=== PATIENT | male | born 1975 ===

== ENCOUNTER 2017-09-20 16:53 | Emergency (ER) | payer MEDICAID ==
--- NOTE | 2017-09-20 18:29 | ED PDOC ---
HPI: Back Time Seen by Provider: 09/20/17 17:19 Chief Complaint (Nursing): Trauma Chief Complaint (Provider): Back Pain History Per: Patient History/Exam Limitations: no limitations Onset/Duration Of Symptoms: Days (x2) Current Symptoms Are (Timing): Still Present Additional Complaint(s): Patient reports back pain after slipping and falling in the shower yesterday. States he hit the left mid back on the side of the tub. Contrary to triage note , patient did not lose his balance. Patient denies any dizziness, lightheadedness, chest pain, headache, or shortness of breath prior to fall. Otherwise: (-) head trauma, (-) other injury, (-) paresthesias, (-) weakness, (- ) acute bowel or bladder dysfunction, (-) fever. PMD: Dr. Jose Marie Past Medical History Reviewed: Historical Data, Nursing Documentation, Vital Signs Vital Signs: Last Vital Signs Temp 98.1 F 09/20/17 16:58 Pulse 73 09/20/17 16:58 Resp 16 09/20/17 16:58 BP 135/78 09/20/17 16:58 Pulse Ox 97 09/20/17 16:58 - Medical History PMH: Back Problems, Depression, Diabetes (Type 1), HTN Denies: Hepatitis, HIV, Seizures, Sexually Transmitted Disease - Surgical History Other surgeries: Right eye surgery s/p trauma - Family History Family History: States: Unknown Family Hx - Social History Current smoker - smoking cessation education provided: No Alcohol: None Drugs: Denies - Home Medications Home Medications: Ambulatory Orders Medication Instructions Recorded Cyclobenzaprine [Cyclobenzaprine 10 mg PO Q8 PRN #9 tab 09/19/15 HCl] Ibuprofen 600 mg PO Q6 PRN #20 tablet 09/19/15 Calamine/Pramoxine [Caladryl] 180 ml TP DAILY #1 bottle 02/24/16 Cephalexin [cephalexin] 500 mg PO BID #20 cap 02/24/16 DiphenhydrAMINE [Benadryl] 25 mg PO Q4H #0 cap 02/24/16 Methylprednisolone [Medrol Dose 4 mg PO DAILY #21 mg 02/24/16 Pack (21 tabs)] Meloxicam [Mobic] 15 mg PO DAILY PRN #30 tab 09/20/17 - Allergies Allergies/Adverse Reactions: Allergies Allergy/AdvReac Type Severity Reaction Status Date / Time levofloxacin Allergy RASH Verified 09/20/17 17:03 Review of Systems ROS Statement: Except As Marked, All Systems Reviewed And Found Negative Constitutional: Negative for: Fever Cardiovascular: Negative for: Chest Pain, Light Headedness Respiratory: Negative for: Shortness of Breath Genitourinary Male: Negative for: Incontinence Musculoskeletal: Positive for: Back Pain Neurological: Negative for: Weakness, Numbness, Headache, Dizziness, Other ( paresthesia, head trauma, syncope) Physical Exam - Reviewed Nursing Documentation Reviewed: Yes Vital Signs Reviewed: Yes - Physical Exam Comments: GENERAL APPEARANCE: Patient is awake, alert, oriented x 3, in mild painful distress. SKIN: Warm, dry; (-) cyanosis. EYES: (-) conjunctival pallor. ENMT: Mucous membranes moist. NECK: (-) tenderness, (-) stiffness, (-) lymphadenopathy. CHEST AND RESPIRATORY: (-) rales, (-) rhonchi, (-) wheezes; breath sounds equal bilaterally. HEART AND CARDIOVASCULAR: (-) irregularity; (-) murmur, (-) gallop. ABDOMEN AND GI: Soft; (-) tenderness; (-) palpable mass. BACK: (+) tenderness to the left mid back near ribs; (-) vertebral tenderness, (-) deformity. EXTREMITIES: (-) deformity. Distal pulses good bilaterally. NEURO AND PSYCH: Mental status as above. Intact sensation bilaterally; normal strength in extension of the knees, plantar and dorsiflexion of the toes. DTRs symmetric. - ECG O2 Sat by Pulse Oximetry: 97 (RA) Pulse Ox Interpretation: Normal Medical Decision Making Medical Decision Making: Clinical Impression: Back pain Time: 18:24 Initial Plan: --X-Ray Left Ribs & PA Chest --Toradol 60 mg IM --Reevaluation XR RIBS: no fracture, no pneumothorax, as read by PA X-ray findings d/w patient, all questions answered. Diagnosis of rib contusion also d/w patient. Based on history, exam and diagnostic results plan will be for outpatient follow up. Will d/c patient with meloxicam. Advised to follow up with primary care physician in 1-2 days without fail. Advised to take medication as prescribed. Return to the emergency room at any time for any new or worsening symptoms. Patient states he fully agrees with and understands discharge instructions. States that he agrees with the plan and disposition. Verbalized and repeated discharge instructions and plan. I have given the patient opportunity to ask any additional questions. Scribe Attestation: Documented by Valerie Martinez, acting as a scribe for Savi Rajput PA-C Provider Scribe Attestation: All medical record entries made by the Scribe were at my direction and personally dictated by me. I have reviewed the chart and agree that the record accurately reflects my personal performance of the history, physical exam, medical decision making, and the department course for this patient. I have also personally directed, reviewed, and agree with the discharge instructions and disposition. Disposition - Clinical Impression Clinical Impression: Rib contusion - Patient ED Disposition Is Patient to be Admitted: No Counseled Patient/Family Regarding: Studies Performed, Diagnosis, Need For Followup, Rx Given - Disposition Disposition: Routine/Home Disposition Time: 19:58 Condition: STABLE Additional Instructions: Thank you for letting us take care of you today. You were treated for L rib contusion. The emergency medical care you received today was directed at your acute symptoms. If you were prescribed any medication, please fill it and take as directed. It may take several days for your symptoms to resolve. Return to the Emergency Department if your symptoms worsen, do not improve, or if you have any other problems. Please contact your doctor in 2 days for re-evaluation and follow up. Bring any paperwork you were given at discharge with you along with any medications you are taking to your follow up visit. Our treatment cannot replace ongoing medical care by a primary care provider (PCP) outside of the emergency department. Thank you for allowing the [facility] team to be part of your care today. If you had an X-Ray : A Radiologist will review the ED reading if any change in treatment is needed we will contact you. Prescriptions: Meloxicam [Mobic] 15 mg PO DAILY PRN #30 tab PRN Reason: Pain, Moderate (4-7) Instructions: Contusion (DC), Bruised Rib (DC) Forms: [employer] (Khmer), [facility] ED School/Work Excuse - POA Present On Arrival: Falls Or Trauma
[2017-09-20 20:51] VITALS: BP 130/70; PULSE 81; RESP 18; TEMP 98; O2SAT 99
--- NOTE | 2017-09-21 09:09 | RAD ---
PROCEDURE: Radiographs of the Chest and Left Ribs. HISTORY: trauma COMPARISON: Chest and ribs radiographs dated 01/13/2014. TECHNIQUE: Frontal radiograph of the chest and multiple oblique radiographs of the left ribs were obtained. FINDINGS: LEFT RIBS: Questionable nondisplaced fractures of the lateral 9th and 10th ribs. LUNGS: Clear. PLEURA: No pneumothorax or pleural fluid. CARDIOVASCULAR: Normal sized heart. No pulmonary vascular congestion. OTHER FINDINGS: Stable appearance of patchy calcifications within the left humeral head likely representing enchondroma. IMPRESSION: Questionable nondisplaced fractures of the lateral 9th and 10th left ribs. ER notification submitted electronically.
== END 2017-09-20 20:51 | disposition home or self-care (01) ==
LOC: H.ER 16:53
DX: S20.219A Contusion of unspecified front wall of thorax, initial encounter (principal); W01.0XXA Fall on same level from slipping, tripping and stumbling without subsequent striking against object, initial encounter; Y93.E1 Activity, personal bathing and showering; Z79.4 Long term (current) use of insulin; F32.9 Major depressive disorder, single episode, unspecified; I10 Essential (primary) hypertension
CPT/HCPCS: 71101; 96372; 99283; J1885

== ENCOUNTER 2017-09-22 17:19 | Emergency (ER) | payer MEDICAID ==
[2017-09-22 19:04] VITALS: BP 122/74; PULSE 70; RESP 16; TEMP 98.4; O2SAT 99
--- NOTE | 2017-09-22 20:57 | ED PDOC ---
HPI: General Adult Time Seen by Provider: 09/22/17 19:10 Chief Complaint (Nursing): Rib Injury Chief Complaint (Provider): LEft rib pain - Radiology call back History Per: Patient History/Exam Limitations: no limitations Onset/Duration Of Symptoms: Days Have you had recent travel within the past 21 days to any of the following countries: [place], [place], [place] or [place]?: No Additional Complaint(s): Pt reports left rib pain. Pt was told to come back to ER for re-evaluation and incentive spirometer due to left rib fractures seen on CXR. Pt states NSAID at home is not helping the pain. Past Medical History Reviewed: Historical Data, Nursing Documentation, Vital Signs Vital Signs: Last Vital Signs Temp 98.4 F 09/22/17 19:00 Pulse 70 09/22/17 19:00 Resp 16 09/22/17 19:00 BP 122/74 09/22/17 19:00 Pulse Ox 99 09/22/17 19:00 - Medical History PMH: Back Problems, Depression, Diabetes (Type 1), HTN Denies: Hepatitis, HIV, Seizures, Sexually Transmitted Disease - Family History Family History: States: Unknown Family Hx - Home Medications Home Medications: Ambulatory Orders Medication Instructions Recorded Cyclobenzaprine [Cyclobenzaprine 10 mg PO Q8 PRN #9 tab 09/19/15 HCl] Ibuprofen 600 mg PO Q6 PRN #20 tablet 09/19/15 Calamine/Pramoxine [Caladryl] 180 ml TP DAILY #1 bottle 02/24/16 Cephalexin [cephalexin] 500 mg PO BID #20 cap 02/24/16 DiphenhydrAMINE [Benadryl] 25 mg PO Q4H #0 cap 02/24/16 Methylprednisolone [Medrol Dose 4 mg PO DAILY #21 mg 02/24/16 Pack (21 tabs)] Meloxicam [Mobic] 15 mg PO DAILY PRN #30 tab 09/20/17 oxyCODONE/Acetaminophen [Percocet 1 ea PO Q6H PRN #15 tab 09/22/17 5/325 mg Tab] - Allergies Allergies/Adverse Reactions: Allergies Allergy/AdvReac Type Severity Reaction Status Date / Time levofloxacin Allergy RASH Verified 09/22/17 19:00 Review of Systems ROS Statement: Except As Marked, All Systems Reviewed And Found Negative Constitutional: Negative for: Fever, Chills Respiratory: Positive for: Pleuritic Pain, Other Physical Exam - Reviewed Nursing Documentation Reviewed: Yes Vital Signs Reviewed: Yes - Physical Exam Appears: Positive for: Well, Non-toxic, No Acute Distress Head Exam: Positive for: ATRAUMATIC, NORMAL INSPECTION, NORMOCEPHALIC Skin: Positive for: Normal Color, Warm, DRY Eye Exam: Positive for: Normal appearance ENT: Positive for: Normal ENT Inspection Neck: Positive for: Normal, Painless ROM Cardiovascular/Chest: Positive for: Regular Rate, Rhythm Respiratory: Positive for: Normal Breath Sounds. Negative for: Accessory Muscle Use, Respiratory Distress Back: Positive for: Normal Inspection Extremity: Positive for: Normal ROM Neurologic/Psych: Positive for: Alert, Oriented - ECG O2 Sat by Pulse Oximetry: 99 Medical Decision Making Medical Decision Making: Respirotry at bedside for incentive spirometer. Disposition - Clinical Impression Clinical Impression: Rib fracture - Patient ED Disposition Is Patient to be Admitted: No Counseled Patient/Family Regarding: Diagnosis, Need For Followup, Rx Given - Disposition Disposition: Routine/Home Disposition Time: 20:56 Condition: GOOD Prescriptions: oxyCODONE/Acetaminophen [Percocet 5/325 mg Tab] 1 ea PO Q6H PRN #15 tab PRN Reason: Pain, Severe (8-10) Instructions: Rib Fractures in Adults Forms: [employer] (Canadian)
== END 2017-09-22 21:16 | disposition home or self-care (01) ==
LOC: H.ER 17:19
DX: S22.32XA Fracture of one rib, left side, initial encounter for closed fracture (principal); Y92.89 Other specified places as the place of occurrence of the external cause; F32.9 Major depressive disorder, single episode, unspecified; I10 Essential (primary) hypertension; Z79.4 Long term (current) use of insulin

== ENCOUNTER 2017-11-09 19:29 | Emergency (ER) | payer MEDICAID ==
[2017-11-09 20:10] VITALS: BP 135/89; PULSE 77; RESP 16; TEMP 98.6; O2SAT 98
--- NOTE | 2017-11-09 20:34 | ED PDOC ---
HPI: General Adult Time Seen by Provider: 11/09/17 20:20 Chief Complaint (Nursing): Abnormal Skin Integrity Chief Complaint (Provider): Abnormal Skin Integrity History Per: Patient History/Exam Limitations: no limitations Onset/Duration Of Symptoms: Days (x3) Current Symptoms Are (Timing): Still Present Additional Complaint(s): Sedrick Webster is a 42 year old male with a past medical history of hypertension and diabetes who is presenting to the ER with complaints of an ingrown hair on his scalp, onset 3 days ago. Patient offers no other medical complaints at this time. PMD: Jose Marie Past Medical History Reviewed: Historical Data, Nursing Documentation, Vital Signs Vital Signs: Last Vital Signs Temp 98.6 F 11/09/17 20:07 Pulse 77 11/09/17 20:07 Resp 16 11/09/17 20:07 BP 135/89 11/09/17 20:07 Pulse Ox 98 11/09/17 20:38 - Medical History PMH: Back Problems, Depression, Diabetes (Type 1), HTN Denies: Hepatitis, HIV, Seizures, Sexually Transmitted Disease - Family History Family History: States: Unknown Family Hx - Home Medications Home Medications: Ambulatory Orders Medication Instructions Recorded Cyclobenzaprine [Cyclobenzaprine 10 mg PO Q8 PRN #9 tab 09/19/15 HCl] Ibuprofen 600 mg PO Q6 PRN #20 tablet 09/19/15 Calamine/Pramoxine [Caladryl] 180 ml TP DAILY #1 bottle 02/24/16 Cephalexin [cephalexin] 500 mg PO BID #20 cap 02/24/16 DiphenhydrAMINE [Benadryl] 25 mg PO Q4H #0 cap 02/24/16 Methylprednisolone [Medrol Dose 4 mg PO DAILY #21 mg 02/24/16 Pack (21 tabs)] Meloxicam [Mobic] 15 mg PO DAILY PRN #30 tab 09/20/17 oxyCODONE/Acetaminophen [Percocet 1 ea PO Q6H PRN #15 tab 09/22/17 5/325 mg Tab] - Allergies Allergies/Adverse Reactions: Allergies Allergy/AdvReac Type Severity Reaction Status Date / Time levofloxacin Allergy RASH Verified 09/22/17 19:00 Review of Systems ROS Statement: Except As Marked, All Systems Reviewed And Found Negative Constitutional: Positive for: Other ([place] hair on scalp) Physical Exam - Reviewed Nursing Documentation Reviewed: Yes Vital Signs Reviewed: Yes - Physical Exam Appears: Positive for: Well, Non-toxic, No Acute Distress Head Exam: Positive for: ATRAUMATIC ((+) pimple: 1 mm area of induration on right parietal scalp), NORMAL INSPECTION, NORMOCEPHALIC Skin: Positive for: Normal Color, Warm, DRY Neurologic/Psych: Positive for: Alert, Oriented. Negative for: Motor/Sensory Deficits - ECG O2 Sat by Pulse Oximetry: 98 (RA) Pulse Ox Interpretation: Normal Medical Decision Making Medical Decision Making: Time: 20:25 Provider applied gentle pressure to pimple on scalp. 1 ml of pus was removed from site. Upon provider evaluation patient is medically stable, and requires no further treatment in the ED at this time. Patient will be discharged home. Counseling was provided and all questions were answered. There is agreement to discharge plan. Scribe Attestation: Documented by Naomie Snyder, acting as a scribe for Wilmer Wells PA-C Provider Scribe Attestation: All medical record entries made by the Scribe were at my direction and personally dictated by me. I have reviewed the chart and agree that the record accurately reflects my personal performance of the history, physical exam, medical decision making, and the department course for this patient. I have also personally directed, reviewed, and agree with the discharge instructions and disposition. Disposition - Clinical Impression Clinical Impression: Pimples - Disposition Referrals: [facility] [Outside] Disposition Time: 20:40 Condition: GOOD Instructions: Dermabrasion, Acne (ED) Forms: [employer] ([place])
== END 2017-11-09 21:32 | disposition home or self-care (01) ==
LOC: H.ER 19:29
DX: R23.8 Other skin changes (principal); E11.9 Type 2 diabetes mellitus without complications; I10 Essential (primary) hypertension; Z79.4 Long term (current) use of insulin; Z86.59 Personal history of other mental and behavioral disorders

== ENCOUNTER 2017-12-14 11:55 | Inpatient (IN) | payer MEDICAID ==
[2017-12-14 12:00] VITALS: O2SAT 99
[2017-12-14 12:50] LABS: BASO # 0.1 K/uL (0.0-0.2); BASO % 1.2 % (0.0-2.0); EOS # 0.2 K/uL (0.0-0.7); EOS % 2.5 % (0.0-4.0); HEMOGLOBIN 16.2 g/dL (12.0-18.0); LYMPH # 2.6 K/uL (1.0-4.3); LYMPH % 33.7 % (20.0-40.0); MEAN CELL VOLUME 86.3 fl (80.0-94.0); MEAN CORPUSCULAR HEMOGLOBIN 29.8 pg (27.0-31.0); MEAN CORPUSCULAR HGB CONC 34.5 g/dL (33.0-37.0); MEAN PLATELET VOLUME 9.6 fl (7.2-11.7); MONO # 0.5 K/uL (0.0-0.8); MONO % 6.9 % (0.0-10.0); NEUT # 4.4 K/uL (1.8-7.0); NEUT % 55.7 % (50.0-75.0); NRBC % 0.1 % (0.0-0.0); RBC 5.42 Mil/uL (4.40-5.90); RED CELL DISTRIBUTION WIDTH 12.9 % (11.5-14.5); WHITE BLOOD COUNT 7.9 K/uL (4.8-10.8)
[2017-12-14 12:59] LABS: ACETAMINOPHEN < 10.0 ug/ml (10.0-30.0); SALICYLATE < 1.0 mg/dl
--- NOTE | 2017-12-14 15:09 | CT ---
PROCEDURE: CT NECK WITHOUT CONTRAST HISTORY: attempted self-strangulation COMPARISON: None. TECHNIQUE: CT of the neck without intravenous contrast. Coronal and sagittal reformats generated. Radiation dose: DLP 453.08 mGy-cm This CT exam was performed using one or more of the following dose reduction techniques: Automated exposure control, adjustment of the mA and/or kV according to patient size, and/or use of iterative reconstruction technique. FINDINGS: NASOPHARYNX: Unremarkable. SUPRAHYOID NECK: Unremarkable oropharynx, oral cavity, parapharyngeal space and retropharyngeal space. INFRAHYOID NECK: Unremarkable larynx, hypopharynx, and supraglottic space. Vocal cords intact. MASS: None. GLANDS: Parotid and submandibular glands unremarkable. Normal size thyroid gland, without nodule. LYMPH NODES: Normal. No lymphadenopathy. CERVICAL SPINE: No fracture or focal lesion. Irug-[id number]-nabxdaca multilevel degenerative spondylosis with marked disc desiccation at C3-4. OTHER FINDINGS: None. IMPRESSION: Unremarkable non-contrast enhanced CT of the neck.
[2017-12-14 15:22] LABS: ALB/GLOB RATIO 1.4 (1.0-2.1); ALBUMIN 4.3 g/dL (3.5-5.0); ALT/SGPT 84 U/L (21-72); AST/SGOT 59 U/L (17-59); BLOOD UREA NITROGEN 10 mg/dl (9-20); CALCIUM 9.9 mg/dL (8.4-10.2); GFR AFRICAN-AMERICAN > 60; GFR NON-AFRICAN AMERICAN > 60
[2017-12-14 15:31] LABS: BARBITURATES, UR NEGATIVE (NEGATIVE); BENZODIAZEPINES, UR NEGATIVE (NEGATIVE); OPIATES, UR NEGATIVE (NEGATIVE); PHENCYCLIDINE, UR NEGATIVE (NEGATIVE)
--- NOTE | 2017-12-14 15:41 | RAD ---
HISTORY: ro infiltrate COMPARISON: Chest and rib radiograph dated 09/20/2017 FINDINGS: LUNGS: No active pulmonary disease. PLEURA: No significant pleural effusion identified, no pneumothorax apparent. CARDIOVASCULAR: Normal. OSSEOUS STRUCTURES: Unchanged. VISUALIZED UPPER ABDOMEN: Normal. OTHER FINDINGS: None. IMPRESSION: No active disease.
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
[2017-12-14] MEDS ORDERED: Magnesium Hydroxide Susp 30 ml UD PO PRN (18:36)
[2017-12-14] MEDS ORDERED: DiphenhydrAMINE 50 mg/ml Inj IM PRN (18:36)
--- NOTE | 2017-12-14 18:41 | PCM.BM ---
<Rimma Conner - Last Filed: 12/14/17 18:40> Treatment Plan Problems - Problems identified on initial assessmt Hopelessness/helplessness Date Initiated: 12/14/17 Time Initiated: 18:40 Assessment reference: NA Status: Active Altered Sleep Patterns Date Initiated: 12/14/17 Time Initiated: 18:41 Status: Active Treatment assets and liabiliti Patient Assests: ADL independent, physically healthy Patient Liabilities: financial problems, relationship conflicts, other ( emotional issues) - Milieu Protocol Maintain good personal hygiene: daily Encourage regular showers, daily Remind patient to perform daily oral care, daily Assist patient to perform ADL's Maintain personal safety: daily Educate patient to report safety concerns to staff, daily Monitor environment for contraband/sharps, every shift Educate patient to report safety concerns to staff, every shift Monitor environment for contraband/sharps Medication safety: Monitor for expected outcome, potential side effects: daily, every shift, Assess barriers to learning: daily, every shift, Assess readiness for medication education: daily, every shift <Rigo Appiah - Last Filed: 12/17/17 17:20> Family Contact Family involvement: Family/SO is involved Family contact: Patient declines to allow family contact at present Family contact name: Pt refused. - Goals for Treatment Patient goals for treatment: Pt reported he would like to have his sleep managed better. Pt denied issues with his mood or level of anxiety. Discharge/Continuing Care - Education Needs Education Needs: Patient Medication, Patient Diagnosis/Disease Process, Patient Coping Skills, Patient Aftercare Safety Plan - Discharge Discharge Criteria: Tolerates medication w/o severe side effects, Free of agitation, Normal sleep pattern, Reduction of target symptoms Discharge to:: Home, With Family - Additional Comments 12/17/17 17:21 Pt reported that he feels happier and calmer. Pt complained about heartburn making it difficult for him to fall asleep. Pt is discharged focused and it was explained that pt will need a Depakote level drawn on Wednesday before he can be discharged. - Treatment Team Participation Discussed with Family/SO: No Was Patient/Family/SO present at Treatment Team Meeting: Yes <Ru Hubbard - Last Filed: 12/20/17 09:46> - Diagnosis (1) Impulse control disorder Status: Acute Interventions: psychotherapy, pharmacotherapy 12/20/17 09:45
[2017-12-14] MEDS: Insulin Lispro (humaLOG) 100 Units/ml Inj SC SCH (21:09)
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
[2017-12-15 07:34] LABS: T4 9.3 ug/dl (5.5-11.0)
[2017-12-15] MEDS: Insulin Lispro (humaLOG) 100 Units/ml Inj SC SCH ×4 (09:00→21:30)
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
--- NOTE | 2017-12-15 15:30 | PCM.PYCHPN ---
Psychiatric Progress Note - Psychiatric Progress Note Patient seen today, length of contact: pt evaluated discussed with team chart reviewed Patient Chief Complaint: I have an anger problem Problems Identified/Issues Discussed: pt evaluated , reported feeling angry and irritable, reporting repeated episodes of poor impulse control, discussed with pt starting depakote for mood stabilization, motivational therapy provided for substance use encouraged pt to participate in groups and attend groups pt denied any current suicidal or homicidal ideation, denied perceptual disturbances Mental Status Examination - Cognitive Function Orientation: Person, Place, Situation, Time Attention: WNL Concentration: WNL Association: WNL Fund of Knowledge: Poor Decription of patient's judgement and insights: poor insight and judgment - Mood Mood: Depressed - Affect Affect: Constricted - Speech Speech: Appropriate - Formal Thought Process Formal Thought Process: Circumstantial Psychotic Thoughts and Behaviors: pt denied perceptual disturbances, non elicited - Suicidal Ideation Suicidal Ideation: No - Homicidal Ideation Homicidal Ideation: No Goal/Treatment Plan - Goal/Treatment Plan Need for Continued Stay: Severe depression anxiety, Discharge may exacerbated symptoms Progress Toward Problem(s) and Goals/Treatment Plan: start depakote 500mg bid motivational group and supportive therapy
[2017-12-15] MEDS: Divalproex 500 mg DR(BID formulation) PO SCH (17:48)
[2017-12-15] MEDS: Insulin Detemir 100 Units/ml Inj SC SCH (21:32)
[2017-12-16] MEDS: Levothyroxine 25 MCG TAB PO SCH (06:36)
[2017-12-16] MEDS ORDERED: INSULN ASP SC SCH (07:30)
[2017-12-16] MEDS ORDERED: INSULIN ASPART PROT SC SCH (07:30)
[2017-12-16] MEDS: Omega-3-Acid Ethyl Esters 1 GM Cap PO SCH ×2 (09:36→21:38)
[2017-12-16] MEDS: Insulin Lispro Mix 75/25 100 units/ml (HumaLog) 10ml SC SCH ×2 (09:36→17:25)
[2017-12-16] MEDS: Insulin Lispro (humaLOG) 100 Units/ml Inj SC SCH ×4 (09:38→21:22)
[2017-12-16] MEDS: Divalproex 500 mg DR(BID formulation) PO SCH (09:39)
--- NOTE | 2017-12-16 14:25 | PCM.PYCHPN ---
Psychiatric Progress Note - Psychiatric Progress Note Patient seen today, length of contact: pt evaluated discussed with team chart reviewed Patient Chief Complaint: I do not sleep well Problems Identified/Issues Discussed: pt evaluated , presenting with anxious mood and labile affect, discussed increasing depakote for better impulse control and will follow up on depakote level pt reported sleep with early insomnia will start trazodone encouraged pt to participate in groups and attend groups pt denied any current suicidal or homicidal ideation, denied perceptual disturbances DSM 5 Symptoms Update: bipolar disorder cannabis use disorder alcohol use disorder Medication Change: Yes (increase depakote) Medical Record Reviewed: Yes Mental Status Examination - Cognitive Function Orientation: Person, Place, Situation, Time Attention: WNL Concentration: WNL Association: WNL Fund of Knowledge: Poor Decription of patient's judgement and insights: poor insight and judgment - Mood Mood: Anxious - Affect Additional comments: labile - Speech Speech: Appropriate - Formal Thought Process Formal Thought Process: Circumstantial Psychotic Thoughts and Behaviors: pt denied perceptual disturbances, non elicited - Suicidal Ideation Suicidal Ideation: No - Homicidal Ideation Homicidal Ideation: No Goal/Treatment Plan - Goal/Treatment Plan Need for Continued Stay: Severe depression anxiety, Discharge may exacerbated symptoms Progress Toward Problem(s) and Goals/Treatment Plan: increase depakote 500mg daily and 750mg qhs, follow up on depakote level trazodone 50mg qhs motivational group and supportive therapy
[2017-12-16] MEDS: Divalproex 250 mg DR(BID formulation) PO SCH (21:36)
[2017-12-16] MEDS: Insulin Detemir 100 Units/ml Inj SC SCH (21:39)
[2017-12-17] MEDS: Levothyroxine 25 MCG TAB PO SCH (06:23)
[2017-12-17 09:13] VITALS: RESP 18
[2017-12-17] MEDS: Omega-3-Acid Ethyl Esters 1 GM Cap PO SCH ×2 (09:58→21:11)
[2017-12-17] MEDS: Divalproex 500 mg DR(BID formulation) PO SCH (10:00)
[2017-12-17] MEDS: Insulin Lispro Mix 75/25 100 units/ml (HumaLog) 10ml SC SCH ×2 (10:05→17:05)
[2017-12-17] MEDS: Insulin Lispro (humaLOG) 100 Units/ml Inj SC SCH ×4 (10:06→21:09)
--- NOTE | 2017-12-17 14:08 | PCM.PYCHPN ---
Psychiatric Progress Note - Psychiatric Progress Note Patient seen today, length of contact: pt evaluated discussed with team chart reviewed Patient Chief Complaint: I slept better last night Problems Identified/Issues Discussed: pt evaluated with treatment team , reported improved sleep with trazodone, stated feeling calmer with the increase in depakote motivational therapy provided in reference to substance use,also discussed with pt the need to be linked to anger management therapy on discharge no reported side effects of medications pt denied any current suicidal or homicidal ideation, denied perceptual disturbances DSM 5 Symptoms Update: bipolar disorder alcohol use disorder cannabis use disorder Medication Change: No Medical Record Reviewed: Yes Mental Status Examination - Cognitive Function Orientation: Person, Place, Situation, Time Attention: WNL Concentration: WNL Association: WNL Fund of Knowledge: Poor Decription of patient's judgement and insights: poor insight and judgment - Mood Mood: Anxious - Affect Affect: Constricted - Speech Speech: Appropriate - Formal Thought Process Formal Thought Process: Circumstantial Psychotic Thoughts and Behaviors: pt denied perceptual disturbances, non elicited - Suicidal Ideation Suicidal Ideation: No - Homicidal Ideation Homicidal Ideation: No Goal/Treatment Plan - Goal/Treatment Plan Need for Continued Stay: Severe depression anxiety, Discharge may exacerbated symptoms Progress Toward Problem(s) and Goals/Treatment Plan: depakote 500mg daily and 750mg qhs, follow up on depakote level 12/20/17 trazodone 50mg qhs motivational group and supportive therapy
[2017-12-17] MEDS: Alum-Mag Hydrox-Simethicone Susp (30 mL) PO PRN (16:57)
[2017-12-17] MEDS: Divalproex 250 mg DR(BID formulation) PO SCH (21:12)
[2017-12-17] MEDS: Insulin Detemir 100 Units/ml Inj SC SCH (21:15)
[2017-12-18] MEDS: Levothyroxine 25 MCG TAB PO SCH (06:42)
[2017-12-18] MEDS: Insulin Lispro (humaLOG) 100 Units/ml Inj SC SCH ×4 (06:48→21:20)
[2017-12-18] MEDS: Insulin Lispro Mix 75/25 100 units/ml (HumaLog) 10ml SC SCH ×2 (08:40→18:32)
[2017-12-18] MEDS: Omega-3-Acid Ethyl Esters 1 GM Cap PO SCH ×2 (08:42→21:16)
[2017-12-18] MEDS: Divalproex 500 mg DR(BID formulation) PO SCH (08:49)
--- NOTE | 2017-12-18 18:15 | PCM.PYCHPN ---
Psychiatric Progress Note - Psychiatric Progress Note Patient seen today, length of contact: pt evaluated discussed with team chart reviewed Patient Chief Complaint: seen visiting with family, seen to be smiling at times, denies desire to harm other and or self, staff report pt rx adherent Problems Identified/Issues Discussed: alteration in mood Medical Problems: per chart Diagnostic Results: per psychiatry per medicine per nursing per social work per chart DSM 5 Symptoms Update: improving mood Medication Change: No Medical Record Reviewed: Yes Consults ordered or reviewed: pt being followed by dr tilley Mental Status Examination - Cognitive Function Orientation: Person, Place, Situation, Time Attention: WNL Concentration: WNL Association: WNL Fund of Knowledge: Poor Decription of patient's judgement and insights: fair - Mood Mood: Anxious Additional comments: beginning to improve - Affect Affect: Constricted - Speech Speech: Appropriate - Formal Thought Process Formal Thought Process: Circumstantial - Suicidal Ideation Suicidal Ideation: No - Homicidal Ideation Homicidal Ideation: No Goal/Treatment Plan - Goal/Treatment Plan Need for Continued Stay: Severe depression anxiety, Discharge may exacerbated symptoms Progress Toward Problem(s) and Goals/Treatment Plan: inpt milieu adjust meds per status per being followed by dr tilley discharge planning in progress Estimated Date of D/C: 12/22/17 - Smoking Cessation Smoking Cessation Initiated: No Reason for not providing: pt defers
[2017-12-18] MEDS: Insulin Detemir 100 Units/ml Inj SC SCH (21:17)
[2017-12-18] MEDS: Divalproex 250 mg DR(BID formulation) PO SCH (21:17)
[2017-12-19] MEDS: Levothyroxine 25 MCG TAB PO SCH (06:39)
[2017-12-19] MEDS: Insulin Lispro (humaLOG) 100 Units/ml Inj SC SCH ×3 (06:41→21:14)
[2017-12-19] MEDS: Divalproex 500 mg DR(BID formulation) PO SCH (08:40)
[2017-12-19] MEDS: Omega-3-Acid Ethyl Esters 1 GM Cap PO SCH ×2 (08:41→21:10)
[2017-12-19] MEDS: Insulin Lispro Mix 75/25 100 units/ml (HumaLog) 10ml SC SCH ×2 (08:45→17:18)
--- NOTE | 2017-12-19 17:34 | PCM.PYCHPN ---
Psychiatric Progress Note - Psychiatric Progress Note Patient seen today, length of contact: pt evaluated discussed with team chart reviewed Patient Chief Complaint: speaks of enjoying visit with family, processes believing that would benefit from on going therapy upon discharge, maintaining some distance from girllfriend to allow for collection of thoughts, reports taking rx as prescribed denies side effects. denies desire to harm other and or self, Problems Identified/Issues Discussed: alteration in mood Medical Problems: per chart Diagnostic Results: per psychiatry per medicine per nursing per social work per chart DSM 5 Symptoms Update: improving mood Medication Change: No Medical Record Reviewed: Yes Consults ordered or reviewed: pt seen by hospitalist Mental Status Examination - Cognitive Function Orientation: Person, Place, Situation, Time Attention: WNL Concentration: WNL Association: WNL Fund of Knowledge: Poor Decription of patient's judgement and insights: fair - Mood Mood: Anxious - Affect Affect: Constricted - Speech Speech: Appropriate - Formal Thought Process Formal Thought Process: Circumstantial - Suicidal Ideation Suicidal Ideation: No - Homicidal Ideation Homicidal Ideation: No Goal/Treatment Plan - Goal/Treatment Plan Need for Continued Stay: Severe depression anxiety, Discharge may exacerbated symptoms Progress Toward Problem(s) and Goals/Treatment Plan: inpt milieu adjust meds per status per being followed by dr tilley discharge planning in progress Estimated Date of D/C: 12/22/17 - Smoking Cessation Smoking Cessation Initiated: No Reason for not providing: pt defers
--- NOTE | 2017-12-19 20:30 | CP.PCM.PN ---
Subjective - Date & Time of Evaluation Date of Evaluation: 12/19/17 Time of Evaluation: 11:00 - Subjective Subjective: F/U IDDM, HTH. Pt with no c/o, calm. Objective - Vital Signs/Intake and Output Vital Signs (last 24 hours): Temp Pulse Resp BP Pulse Ox 97.9 F 87 18 128/68 99 12/19/17 17:00 12/19/17 17:00 12/19/17 17:00 12/19/17 17:00 12/14/17 17:33 - Medications Medications: Current Medications Acetaminophen (Tylenol 325mg Tab) 650 mg PO Q4 PRN PRN Reason: Pain, moderate (4-7) Al Hydrox/Mg Hydrox/Simethicone (Maalox Plus 30 Ml) 30 ml PO Q4 PRN PRN Reason: Dyspepsia Last Admin: 12/17/17 16:57 Dose: 30 ml Atorvastatin Calcium (Lipitor) [address] [facility] Last Admin: 12/19/17 08:41 Dose: 80 mg Diphenhydramine HCl (Benadryl) 50 mg IM Q6 PRN PRN Reason: Extrapyramidal S/S Unable PO Diphenhydramine HCl (Benadryl) 50 mg PO Q6 PRN PRN Reason: Extrapyramidal Symptoms Divalproex Sodium (Depakote Dr(*Bid*)) 750 mg PO [facility] Last Admin: 12/18/17 21:17 Dose: 750 mg Divalproex Sodium (Depakote Dr(*Bid*)) [address] [facility] Last Admin: 12/19/17 08:40 Dose: 500 mg Ergocalciferol (Drisdol 50,000 Intl Units Cap) 1 cap PO [facility] Fenofibrate (Tricor) [address] [facility] Last Admin: 12/19/17 08:40 Dose: 145 mg Haloperidol (Haldol) 5 mg PO Q4 PRN PRN Reason: Agitation Haloperidol Lactate (Haldol) 5 mg IM Q4 PRN PRN Reason: Agitation, Unable to Take PO Hydroxyzine Pamoate (Vistaril) 50 mg PO Q8 PRN PRN Reason: Anxiety Insulin Detemir (Levemir) 20 units SC [facility] Last Admin: 12/18/17 21:17 Dose: 20 unit Insulin Human Lispro (Humalog) [address] [facility] PRN Reason: Protocol Last Admin: 12/19/17 17:18 Dose: 2 unit Insulin Lispro Protam/Lispro Human (Humalog Mix 75/25) [address] [facility] Last Admin: 12/19/17 17:18 Dose: 20 units Levothyroxine Sodium (Synthroid) 25 mcg PO DAILY@0630 [facility] Last Admin: 12/19/17 06:39 Dose: 25 mcg Loratadine (Claritin) [address] [facility] Last Admin: 12/18/17 21:16 Dose: 10 mg Lorazepam (Ativan) 2 mg IM Q4 PRN PRN Reason: Anxiety/Agitation,Unable PO Losartan Potassium (Cozaar) [address] [facility] Last Admin: 12/19/17 08:40 Dose: 50 mg Magnesium Hydroxide (Milk Of Magnesia) 30 ml PO HS PRN PRN Reason: Constipation Last Admin: 12/16/17 23:37 Dose: 30 ml Metformin HCl (Glucophage) 1,[address] [facility] Last Admin: 12/19/17 17:15 Dose: 1,000 mg [id number] Ethyl Esters (Lovaza) [address] [facility] Last Admin: 12/19/17 08:41 Dose: 2 gm Sitagliptin Phosphate (Januvia) [address] [facility] Last Admin: 12/19/17 08:40 Dose: 100 mg Trazodone HCl (Desyrel) [address] [facility] Last Admin: 12/18/17 21:17 Dose: 50 mg - Labs Labs: 12/14/17 12:40 12/14/17 12:35 - Constitutional Appears: No Acute Distress - Head Exam Head Exam: NORMAL INSPECTION - Eye Exam Additional comments: R eye blind - ENT Exam ENT Exam: Normal Exam - Neck Exam Neck Exam: Normal Inspection - Respiratory Exam Respiratory Exam: NORMAL BREATHING PATTERN - Cardiovascular Exam Cardiovascular Exam: REGULAR RHYTHM - GI/Abdominal Exam GI & Abdominal Exam: Soft, Normal Bowel Sounds - Extremities Exam Extremities Exam: Normal Inspection - Back Exam Back Exam: NORMAL INSPECTION - Neurological Exam Neurological Exam: Alert, Oriented x3 Additional comments: No motor sensory deficit. Assessment and Plan (1) IDDM (insulin dependent diabetes mellitus) Status: Chronic (2) HTN (hypertension) Status: Chronic (3) Dyslipidemia Status: Chronic (4) Chronic back pain Status: Chronic (5) Hypothyroidism Status: Chronic - Assessment and Plan (Free Text) Plan: HTN stable, BS 229, monitor BS, continue current Tx.
[2017-12-19] MEDS: Divalproex 250 mg DR(BID formulation) PO SCH (21:10)
[2017-12-19] MEDS: Insulin Detemir 100 Units/ml Inj SC SCH (21:12)
[2017-12-20] MEDS: Alum-Mag Hydrox-Simethicone Susp (30 mL) PO PRN (00:18)
[2017-12-20] MEDS: Levothyroxine 25 MCG TAB PO SCH (06:35)
[2017-12-20] MEDS: Insulin Lispro (humaLOG) 100 Units/ml Inj SC SCH ×2 (06:41→12:21)
[2017-12-20] MEDS: Insulin Lispro Mix 75/25 100 units/ml (HumaLog) 10ml SC SCH (07:50)
[2017-12-20] MEDS: Omega-3-Acid Ethyl Esters 1 GM Cap PO SCH (08:44)
[2017-12-20] MEDS: Divalproex 500 mg DR(BID formulation) PO SCH (08:45)
[2017-12-20 08:49] VITALS: BP 134/72; PULSE 81
[2017-12-20 09:12] VITALS: TEMP 98.5
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
[2017-12-21] MEDS ORDERED: Ergocalciferol 50,000 Intl Units Cap PO SCH (20:03)
== END 2017-12-20 15:24 | disposition left against medical advice (07) | DRG 430 ==
LOC: H.ER 11:55 → H.ERHOLD 15:41 → H.PSYCH 17:46
PROVIDERS: ADMIT Psychiatry & Neurology Psychiatry; ATTEND Psychiatry & Neurology Psychiatry
PROC: GZHZZZZ Group Psychotherapy (ICD-10-PCS; principal; 2017-12-15)
PROC: GZ51ZZZ Individual Psychotherapy, Behavioral (ICD-10-PCS; 2017-12-15)
DX: F31.10 Bipolar disorder, current episode manic without psychotic features, unspecified (principal); F63.9 Impulse disorder, unspecified; G47.00 Insomnia, unspecified; G89.29 Other chronic pain; I10 Essential (primary) hypertension; J31.0 Chronic rhinitis; Z59.9 Problem related to housing and economic circumstances, unspecified; Z79.1 Long term (current) use of non-steroidal anti-inflammatories (NSAID); Z79.4 Long term (current) use of insulin; Z82.49 Family history of ischemic heart disease and other diseases of the circulatory system; Z82.5 Family history of asthma and other chronic lower respiratory diseases; F45.9 Somatoform disorder, unspecified; M51.36 Other intervertebral disc degeneration, lumbar region; Z87.828 Personal history of other (healed) physical injury and trauma; M54.9 Dorsalgia, unspecified; R45.87 Impulsiveness; E03.9 Hypothyroidism, unspecified; E11.9 Type 2 diabetes mellitus without complications; E78.00 Pure hypercholesterolemia, unspecified; E78.5 Hyperlipidemia, unspecified; F10.10 Alcohol abuse, uncomplicated; F12.10 Cannabis abuse, uncomplicated

== ENCOUNTER 2018-05-27 20:01 | Emergency (ER) | payer MEDICAID ==
[2018-05-27 20:19] VITALS: RESP 18
[2018-05-27 22:28] LABS: URINE BILIRUBIN NEGATIVE (NEGATIVE); URINE BLOOD NEGATIVE (NEGATIVE); URINE CLARITY CLEAR (Clear); URINE COLOR YELLOW (YELLOW); URINE GLUCOSE (UA) >=500 mg/dL (Normal); URINE LEUKOCYTE ESTERASE NEG Leu/uL (Negative); URINE PROTEIN 30 mg/dL (NEGATIVE); URINE UROBILINOGEN 0.2-1.0 mg/dL (0.2-1.0)
[2018-05-27 22:36] LABS: HEMOGLOBIN 15.8 g/dL (12.0-18.0); MEAN CELL VOLUME 85.7 fl (80.0-94.0); MEAN CORPUSCULAR HEMOGLOBIN 29.9 pg (27.0-31.0); MEAN CORPUSCULAR HGB CONC 34.9 g/dL (33.0-37.0); RBC 5.27 Mil/uL (4.40-5.90); RED CELL DISTRIBUTION WIDTH 12.5 % (11.5-14.5)
[2018-05-27 22:44] LABS: ALB/GLOB RATIO 1.2 (1.0-2.1); ALBUMIN 4.2 g/dL (3.5-5.0); ALT/SGPT 61 U/L (21-72); AST/SGOT 50 U/L (17-59); BILIRUBIN,DIRECT 0.2 mg/ml (0.0-0.4); BLOOD UREA NITROGEN 12 mg/dl (9-20); CALCIUM 9.7 mg/dL (8.4-10.2); GFR NON-AFRICAN AMERICAN > 60
[2018-05-27] MEDS ORDERED: Sodium Chloride 0.9% 50 ML IV ONE (22:55)
[2018-05-27] MEDS ORDERED: Iohexol 300 100 ML IJ ONE (22:55)
--- NOTE | 2018-05-27 22:57 | ED PDOC ---
HPI: Abdomen Time Seen by Provider: 05/27/18 21:08 Chief Complaint (Nursing): Abdominal Pain History Per: Patient History/Exam Limitations: no limitations Onset/Duration Of Symptoms: Days Current Symptoms Are (Timing): Still Present Location Of Pain/Discomfort: LLQ Quality Of Discomfort: Cramping, Burning Additional Complaint(s): Hx of DM, HTN, HLD presenting with LLQ pain since Wednesday, states that it has been getting worse, associated with a cramping and burning sensation. States that he tried to vomit today but couldn't. No fevers, urinary symptoms, but states he had trouble having a BM. PMD: Dr. Marie Past Medical History Vital Signs: Last Vital Signs Temp 97.7 F 05/27/18 20:17 Pulse 75 05/27/18 20:17 Resp 18 05/27/18 20:17 BP 126/72 05/27/18 20:17 Pulse Ox 100 05/27/18 20:17 - Medical History PMH: Back Problems, Depression, Diabetes, HTN, Hypercholesterolemia Denies: Hepatitis, HIV, Chronic Kidney Disease, Seizures, Sexually Transmitted Disease - Family History Family History: States: Unknown Family Hx - Home Medications Home Medications: Ambulatory Orders Medication Instructions Recorded Atorvastatin [Lipitor] 80 mg PO DAILY 12/14/17 Ergocalciferol (Vitamin D2) 50,000 unit PO TU 12/14/17 [Vitamin D2] Exenatide Microspheres [Bydureon 2 mg SC WE 12/14/17 Pen] Fenofibrate [Triglide] 160 mg PO DAILY 12/14/17 Icosapent Ethyl [Vascepa] 2 gm PO Q12 12/14/17 Insulin Aspart Prot/Insuln Asp 42 unit SC BID 12/14/17 [Novolog Mix 70-30 Vial] Insulin Glargine,Hum.rec.anlog 32 unit SC HS 12/14/17 [Basaglar Kwikpen U-100] Levocetirizine Dihydrochloride 5 mg PO HS 12/14/17 [Xyzal] Levothyroxine [Synthroid] 25 mcg PO DAILY 12/14/17 Losartan [Cozaar] 50 mg PO DAILY 12/14/17 MetFORMIN [glucoPHAGE] 1,000 mg PO BID 12/14/17 SITagliptin [Januvia] 100 mg PO DAILY 12/14/17 Atorvastatin [Lipitor] 80 mg PO DAILY tab 12/20/17 Divalproex [Depakote DR(*BID*)] 500 mg PO DAILY 30 Days #30 tcp 12/20/17 Divalproex [Depakote DR(*BID*)] 750 mg PO HS 30 Days #90 tcp 12/20/17 Ergocalciferol [Drisdol 50,000 1 cap PO TU cap 12/20/17 Intl Units Cap] Fenofibrate [Tricor] 145 mg PO DAILY tab 12/20/17 Insulin Detemir [Levemir] 20 units SC HS vial 12/20/17 Insulin Lispro Mix 75/25 [HumaLog 20 units SC BIDAC vial 12/20/17 MIX 75/25] traZODone [Desyrel] 50 mg PO HS 30 Days #30 tab 12/20/17 Docusate Sodium [Dulcolax Stool 100 mg PO DAILY #12 capsule 05/28/18 Softener] Ibuprofen [Motrin Tab] 600 mg PO Q6 #30 tab 05/28/18 - Allergies Allergies/Adverse Reactions: Allergies Allergy/AdvReac Type Severity Reaction Status Date / Time levofloxacin Allergy RASH Verified 05/27/18 20:17 Review of Systems Gastrointestinal: Positive for: Nausea, Abdominal Pain Physical Exam - Reviewed Nursing Documentation Reviewed: Yes Vital Signs Reviewed: Yes - Physical Exam Appears: Positive for: Well, Non-toxic, No Acute Distress Head Exam: Positive for: ATRAUMATIC, NORMAL INSPECTION, NORMOCEPHALIC Skin: Positive for: Normal Color, Warm, DRY Eye Exam: Positive for: EOMI, Normal appearance, PERRL ENT: Positive for: Normal ENT Inspection Neck: Positive for: Normal, Painless ROM Cardiovascular/Chest: Positive for: Regular Rate, Rhythm Respiratory: Positive for: CNT, Normal Breath Sounds Gastrointestinal/Abdominal: Positive for: Normal Exam, Soft, Tenderness (LLQ). Negative for: Organomegaly, Mass, Distended, Guarding Back: Positive for: Normal Inspection Extremity: Positive for: Normal ROM Neurologic/Psych: Positive for: Alert, Oriented - Laboratory Results Result Diagrams: 05/27/18 22:30 05/27/18 22:30 - ECG O2 Sat by Pulse Oximetry: 100 Pulse Ox Interpretation: Normal Medical Decision Making Medical Decision MakinPM Hx of DM, HTN, HLD presenting with LLQ pain --very well appearing, normal vitals --LLQ tenderness on exam --ddx includes but not lmited to: diverticulitis, colitis, diverticulosis, gas -pending labs, CT, NSAID 0138 CT ABD/PELVIS RESULTS COMMENTS: The liver is moderately enlarged with decreased attenuation without mass or defect. There is no intra or extrahepatic biliary ductal dilatation. The spleen is normal. The gallbladder is within normal limits. The pancreas is of normal contour and attenuation characteristics. There is no evidence of adrenal mass. Both kidneys demonstrate prompt and equal nephrograms. The kidneys are normal in size, shape and configuration. There is no evidence of renal or ureteral mass. No renal or ureteral calculi are identified. There is no hydroureter or hydronephrosis. Significant food residue in the stomach. No evidence for appendicitis. There is no bowel wall thickening. No evidence for small or large bowel obstruction. There is no evidence of abdominal ascites or lymphadenopathy. Uncomplicated colonic diverticulosis. There is no evidence of intrinsic or extrinsic bladder mass. There is no pelvic ascites or lymphadenopathy. Mild prostatomegaly. Prostatic calcifications. Images of the lung bases show no evidence of pleural or parenchymal mass. There are no pleural effusions. The bony structures are free of lytic or blastic lesions. Changes of panniculitis in the anterior abdominal wall. IMPRESSION: Hepatomegaly with hepatic steatosis. Uncomplicated colonic diverticulosis. Constipation. Changes of panniculitis in the anterior abdominal wall. Thank you for your kind referral of this patient. Electronically signed on May 28, 2018 1:38:06 AM EDT by: Albaro Magdaleno M.D., Certified by ABR, MSK, Neuroradiology Patient is feeling better, informed of results. Advised diet changes and laxatives as needed and followup with Dr. Marie. Well appearing with stable vitals upon discharge. Disposition - Clinical Impression Clinical Impression: Constipation, Diverticulosis - Patient ED Disposition Is Patient to be Admitted: No - Disposition Referrals: Jose Marie MD [Staff Provider] - Disposition: Routine/Home Disposition Time: 02:39 Condition: IMPROVED Prescriptions: Docusate Sodium [Dulcolax Stool Softener] 100 mg PO DAILY #12 capsule Ibuprofen [Motrin Tab] 600 mg PO Q6 #30 tab Instructions: Constipation, Adult (DC), Diverticulosis, High Fiber Diet Forms: [employer] (Lithuanian)
[2018-05-28 03:45] VITALS: BP 135/86; PULSE 70; TEMP 98.1; O2SAT 96
--- NOTE | 2018-05-28 10:28 | CT ---
Date of service: 05/27/2018 PROCEDURE: CT Abdomen and Pelvis with contrast HISTORY: LLQ pain COMPARISON: CT scan of the abdomen pelvis dated 03/25/2012 TECHNIQUE: Contrast dose: 95 mL Omnipaque 300 Radiation dose: Total exam DLP = 955.48 mGy-cm. This CT exam was performed using one or more of the following dose reduction techniques: Automated exposure control, adjustment of the mA and/or kV according to patient size, and/or use of iterative reconstruction technique. FINDINGS: LOWER THORAX: Unremarkable. LIVER: Diffuse hepatic steatosis. No gross lesion or ductal dilatation. GALLBLADDER AND BILE DUCTS: Unremarkable. PANCREAS: Unremarkable. No gross lesion or ductal dilatation. SPLEEN: Unremarkable. ADRENALS: Unremarkable. No mass. KIDNEYS AND URETERS: Unremarkable. No hydronephrosis. No solid mass. VASCULATURE: Unremarkable. No aortic aneurysm. No aortic atherosclerotic calcification or mural plaque present. Retroaortic and circumaortic left renal vein. BOWEL: Unremarkable. No obstruction. No gross mural thickening. APPENDIX: Normal appendix. PERITONEUM: Unremarkable. No free fluid. No free air. LYMPH NODES: Unremarkable. No enlarged lymph nodes. BLADDER: Unremarkable. REPRODUCTIVE: Symmetric ductus deferens calcification. BONES: No acute fracture. Spinal degenerative changes. OTHER FINDINGS: None. IMPRESSION: No acute abdominal pelvic pathology. Diffuse hepatic steatosis. Symmetric ductus deferens calcifications which can be seen in the setting of diabetes mellitus and/or certain types of chronic infection.
== END 2018-05-28 03:15 | disposition home or self-care (01) ==
LOC: H.ER 20:01
DX: K59.00 Constipation, unspecified (principal); K57.30 Diverticulosis of large intestine without perforation or abscess without bleeding; E11.9 Type 2 diabetes mellitus without complications; E78.00 Pure hypercholesterolemia, unspecified; I10 Essential (primary) hypertension; Z79.4 Long term (current) use of insulin
CPT/HCPCS: 74177; 80048; 80076; 81003; 82948; 85027; 96374; 99283; J1885; J2270; Q9967